=== PATIENT | male | born 1940 | race Caucasian/White ===

== ENCOUNTER 2018-03-26 13:45 | Emergency (ER) | payer OTHER, MEDICARE ==
--- NOTE | 2018-03-26 13:55 | EDPHY ---
H & P Stated Complaint: SHOULDER SURG 03/18 STANDARD LABS SHOWED LOW SODIUM Time Seen by Provider: 03/26/18 13:55 - Personal History Current Tetanus/Diphtheria Vaccine: Yes - Medical/Surgical History Hx Asthma: No Hx Chronic Respiratory Disease: No Hx Diabetes: No Hx Cardiac Disease: No Hx Renal Disease: No Hx Cirrhosis: No Hx Alcoholism: No Hx HIV/AIDS: No Hx Splenectomy or Spleen Trauma: No Other PMH: R SHOULLDER REPLACEMENT - Social History Smoking Status: Never smoked Constitutional: Initial Vital Signs Temperature (C) 36.7 C 03/26/18 13:49 Heart Rate 84 03/26/18 13:49 Respiratory Rate 18 03/26/18 13:49 Blood Pressure 146/71 H 03/26/18 13:49 O2 Sat (%) 94 03/26/18 13:49 O2 Delivery Mode Room Air Allergies/Adverse Reactions: No Known Allergies Allergy (Unverified 03/26/18 13:48) Home Medications: Medication Instructions Recorded Hydrochlorothiazide 03/26/18 Lisinopril 03/26/18 Medical Decision Making ED Course/Re-evaluation: CHIEF COMPLAINT: Low sodium HISTORY OF PRESENT ILLNESS: The patient is a 77 y/o male arriving with his at the referral of his PCP due to low sodium on recent labs following a right shoulder replacement 8 days ago. He describes feeling vaguely poor since the surgery and saw his PCP yesterday for evaluation. He's had a prior episode of hyponatremia requiring 4-day admission a few years ago that feels similar to his symptoms over the last several days. Labs from yesterday showed a sodium of 121. He also notes he recently restarted hydrochlorothiazide and sometimes has difficulty moderating appropriate hydration levels. He sometimes drinks too much water due to concern for dehydration and his notes he has been urinating frequently "like a waterfall" since restarting this medication as well. He denies severe post-operative pain, vomiting, fever, abdominal pain, weakness, paresthesias, headache, vision changes, recent illness, or recent trauma. REVIEW OF SYSTEMS: A 10 point review of systems was performed and is negative with the exception of the elements mentioned in the history of present illness. PHYSICAL EXAM: HR, BP, O2 Sat, RR. Temp noted General Appearance: Alert, well hydrated, appropriate, and non-toxic appearing. Head: Atraumatic without scalp tenderness or obvious injury Eyes: Pupils equal, round, reactive to light and accommodation, EOMI, no trauma , no injection. Nose: Atraumatic, no rhinorrhea, clear. Throat: Mucus membranes moist. Neck: Supple. Respiratory: No retractions, no distress, no wheezes, and no accessory muscle use. Lungs are clear to auscultation bilaterally. Cardiovascular: Regular rate and rhythm, no murmurs, rubs, or gallops. Good capillary refill all extremities. Gastrointestinal: Abdomen is soft, nontender, non-distended, no masses, no rebound, no guarding, no peritoneal signs. Musculoskeletal: Normal active ROM of all extremities, atraumatic. Right arm in sling. Neurological: Alert, appropriate, and interactive. The patient has non-focal cranial nerves, motor, sensory, and cerebellar exam. Skin: No rashes, good turgor, no nodules on palpation. Past medical history: Denies Past surgical history: Right shoulder replacement 03/18/18. Family history: Noncontributory Social history: at bedside. PCP: Dr. Garsia at [facility]. Supervisor Hard Candy: Dr. Ba. Orthopedist: at [facility] DIFFERENTIAL DIAGNOSIS: The differential diagnosis for the patient's hyponatremia and symptoms included but was not limited to medication side effect , over-hydration, dehydration, kidney pathology, post-operative complication, viral syndrome. MEDICAL DECISION MAKING: This is a well-appearing 77 y/o male 8 days post-op from a right shoulder replacement who restarted his hydrochlorothiazide recently and presents with hyponatremia of 121 and hypochloridemia of 82 on labs from yesterday. He feels vaguely and mildly poor since the surgery, but is generally asymptomatic. Exam is unremarkable. No signs of local or systemic infection. He is hemodynamically stable. Plan for labs and UA to recheck electrolytes. Labs today show improvement in electrolytes. Na 127, Cl 90. Patient is asymptomatic on reassessment and could possibly go through slow oral repletion at home. Will discuss with sensor operator. 1435: Consulted with Dr. Monge, hospitalist. He agrees patient could complete oral repletion at home given his normal exam, lack of current symptoms , and improving labs. 1451: Consulted with Dr. Gaston, bronze chaser, regarding my recommendation to patient to discontinue his hydrochlorothiazide until follow up with Dr. Ba next week. Dr. Gaston would like him to call to schedule that appointment. Reassessed patient and discussed options. Offered admission for repletion, which he declined. He will be discharged home with instructions to hold his hydrochlorothiazide, limit over-hydration, and follow up with cardiology and neurology next week. Return precautions discussed. He is comfortable with this plan. - Data Points Laboratory Results: Laboratory Results 03/26/18 14:05 03/26/18 14:05 03/26/18 03/26/18 03/26/18 14:35 14:17 14:05 WBC RBC Hgb POC Hgb 12.9 gm/dL L gm/dL (13.7-17.5) Hct POC Hct 38 % L % (40-51) MCV MCH MCHC RDW Plt Count MPV Neut % (Auto) Lymph % (Auto) [place] % (Auto) Eos % (Auto) Baso % (Auto) Nucleat RBC Rel Count Absolute Neuts (auto) Absolute Lymphs (auto) Absolute Monos (auto) Absolute Eos (auto) Absolute Basos (auto) Absolute Nucleated RBC Immature Gran % Immature Gran # POC Sodium 127 mEq/L L mEq/L (135-145) Sodium 125 mEq/L L mEq/L (135-145) POC Potassium 3.9 mEq/L mEq/L (3.3-5.0) Potassium 4.2 mEq/L mEq/L (3.3-5.0) POC Chloride 90 mEq/L L mEq/L (97-110) Chloride 90 mEq/L L mEq/L (97-110) Carbon Dioxide 25 mEq/l mEq/l (22-31) Anion Gap 10 mEq/L mEq/L (8-16) POC BUN 16 mg/dL mg/dL (7-23) BUN 17 mg/dL mg/dL (7-23) Creatinine 0.7 mg/dL mg/dL (0.7-1.3) POC Creatinine 0.7 mg/dL mg/dL (0.7-1.3) Estimated GFR > 60 Glucose 95 mg/dL mg/dL (70-100) POC Glucose 102 mg/dL H mg/dL (70-100) Calcium 8.1 mg/dL L mg/dL (8.5-10.4) Magnesium 2.2 mg/dL mg/dL (1.6-2.3) Ur Random Creatinine Pending U Random Total Protein Pending Ur Random Sodium Pending Ur Random Potassium Pending Ur Random Chloride Pending Ur Random Magnesium Pending 03/26/18 14:05 WBC 9.20 10^3/uL 10^3/uL (3.80-9.50) RBC 4.46 10^6/uL 10^6/uL (4.40-6.38) Hgb 13.4 g/dL L g/dL (13.7-17.5) POC Hgb Hct 37.0 % L % (40.0-51.0) POC Hct MCV 83.0 fL fL (81.5-99.8) MCH 30.0 pg pg (27.9-34.1) MCHC 36.2 g/dL g/dL (32.4-36.7) RDW 12.5 % % (11.5-15.2) Plt Count 293 10^3/uL 10^3/uL (150-400) MPV 8.6 fL L fL (8.7-11.7) Neut % (Auto) 69.5 % % (39.3-74.2) Lymph % (Auto) 16.2 % % (15.0-45.0) [place] % (Auto) 11.2 % % (4.5-13.0) Eos % (Auto) 2.0 % % (0.6-7.6) Baso % (Auto) 0.4 % % (0.3-1.7) Nucleat RBC Rel Count 0.0 % % (0.0-0.2) Absolute Neuts (auto) 6.40 10^3/uL 10^3/uL (1.70-6.50) Absolute Lymphs (auto) 1.49 10^3/uL 10^3/uL (1.00-3.00) Absolute Monos (auto) 1.03 10^3/uL H 10^3/uL (0.30-0.80) Absolute Eos (auto) 0.18 10^3/uL 10^3/uL (0.03-0.40) Absolute Basos (auto) 0.04 10^3/uL 10^3/uL (0.02-0.10) Absolute Nucleated RBC 0.00 10^3/uL 10^3/uL (0-0.01) Immature Gran % 0.7 % % (0.0-1.1) Immature Gran # 0.06 10^3/uL 10^3/uL (0.00-0.10) POC Sodium Sodium POC Potassium Potassium POC Chloride Chloride Carbon Dioxide Anion Gap POC BUN BUN Creatinine POC Creatinine Estimated GFR Glucose POC Glucose Calcium Magnesium Ur Random Creatinine U Random Total Protein Ur Random Sodium Ur Random Potassium Ur Random Chloride Ur Random Magnesium Point of Care Test Results: 03/26/18 14:17 POC Sodium 127 L POC Potassium 3.9 POC Chloride 90 L POC BUN 16 POC Creatinine 0.7 POC Glucose 102 H Departure - Departure Disposition: Home, Routine, Self-Care Clinical Impression: Hyponatremia Condition: Good Instructions: Hyponatremia (ED) Additional Instructions: 1. Stay on Lisinopril. Discontinue your hydrochlorothiazide until follow up with your bronze chaser next week. 2. Limit your free water intake over the next few days. 3. Follow up with you bronze chaser without fail next week. I recommend calling today to schedule this appointment. 4. Return to the ED for any worsening of condition. Referrals: Seferino Garsia, [Primary Care Provider] - As per Instructions Report Scribed for: Prieto Bernard Report Scribed by: Rubina Mcleod Date of Report: 03/26/18 Time of Report: 13:57
[2018-03-26 14:21] LABS: PLATELET COUNT 293 10^3/uL (150-400)
[2018-03-26 15:02] VITALS: BP 128/77
== END 2018-03-26 15:11 | disposition home or self-care (01) ==
DX: E87.1 Hypo-osmolality and hyponatremia (principal)
CPT/HCPCS: 82947-QW

== ENCOUNTER → 2018-03-30 | Outpatient (CLI) | payer OTHER, MEDICARE | LOC: BHFA 13:15 | PROVIDERS: ATTEND Internal Medicine Cardiovascular Disease | DX: I10 Essential (primary) hypertension (principal) ==

== ENCOUNTER → 2018-04-16 | Outpatient (CLI) | payer OTHER, MEDICARE | LOC: FIMAGING 12:54 | PROVIDERS: ATTEND Internal Medicine | DX: I10 Essential (primary) hypertension (principal) ==

== ENCOUNTER → 2018-07-13 | Outpatient (CLI) | payer OTHER, MEDICARE | LOC: FCPNEURO 21:00 | PROVIDERS: ATTEND Psychiatry & Neurology Sleep Medicine | DX: G47.33 Obstructive sleep apnea (adult) (pediatric) (principal) ==

== ENCOUNTER → 2018-09-10 | Outpatient (CLI) | payer OTHER, MEDICARE | LOC: BHFA 09:15 | PROVIDERS: ATTEND Internal Medicine Cardiovascular Disease | DX: I10 Essential (primary) hypertension (principal) ==

== ENCOUNTER 2019-02-21 17:20 | Emergency (ER) | payer OTHER, MEDICARE ==
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
[2019-02-21] MEDS ORDERED: NS 1,000 ML IV ONE (18:08)
[2019-02-21] MEDS ORDERED: LISINOPRIL 20 MG TAB PO ONE (18:11)
[2019-02-21 18:35] LABS: PLATELET COUNT 149 10^3/uL (150-400)
[2019-02-21 23:19] VITALS: BP 174/101
--- NOTE | 2019-02-26 07:47 | CPEKG ---
Test Reason : OPEN Blood Pressure : / mmHG Vent. Rate : 067 BPM Atrial Rate : 066 BPM P-R Int : 211 ms QRS Dur : 101 ms QT Int : 412 ms P-R-T Axes : 015 -10 -03 degrees QTc Int : 435 ms Sinus rhythm Inferior infarct, old Confirmed by Frank Benjamin ([id number]) on 02/26/2019 7:46:04 AM Referred By: Frank Benjamin Confirmed By:Frank Benjamin
--- NOTE | 2019-02-26 07:47 | CPEKG ---
Test Reason : OPEN Blood Pressure : / mmHG Vent. Rate : 062 BPM Atrial Rate : 062 BPM P-R Int : 238 ms QRS Dur : 093 ms QT Int : 417 ms P-R-T Axes : 008 -08 -13 degrees QTc Int : 424 ms Sinus rhythm Prolonged GA interval Inferior infarct, age indeterminate Confirmed by Frank Benjamin ([id number]) on 02/26/2019 7:46:05 AM Referred By: Frank Benjamin Confirmed By:Frank Benjamin
== END 2019-02-21 23:18 | disposition home or self-care (01) ==
DX: I10 Essential (primary) hypertension (principal); E86.9 Volume depletion, unspecified
CPT/HCPCS: 84484-ER